=== PATIENT | female | born 1965 | race Caucasian/White ===

== ENCOUNTER 2017-03-27 07:25 | Emergency (ER) | payer BC ==
[2017-03-27 07:42] VITALS: BP 115/77
[2017-03-27] MEDS ORDERED: Albuterol/Ipratropium NEB.SOL* Albuterol 2.5 MG/Ipratropium 0.5 MG 3 ML INH ONE (08:11)
--- NOTE | 2017-03-27 08:11 | UC ---
Throat Pain/Nasal Jf HPI - HPI Summary HPI Summary: complaint of nasal congestion and cough and sore throat that started 4 daysa go has had some fever and chills feels fatigued cough has become productive coughing fits at night using albuterol approx 3-4x day for the last 3 days hears wheezing in her chest sometimes especially at night taking ibuprofen, mucinex, and her 's prednisone yesterday without relief - History of Current Complaint Chief Complaint: UCRespiratory Stated Complaint: FEVER CHILLS CONGESTION Time Seen by Provider: 03/27/17 08:04 Hx Obtained From: Patient - Allergies/Home Medications Allergies/Adverse Reactions: Allergies Allergy/AdvReac Type Severity Reaction Status Date / Time No Known Allergies Allergy Verified 03/09/17 12:18 Home Medications: Home Medications Dextromethorphan-Guaifenesin [Mucinex Dm Maximum Streng 60-1200 mg] 1 tab PO TID PRN 03/27/17 [History Confirmed 03/27/17] predniSONE TAB* [Deltasone TAB*] 1 tbsp PO DAILY 03/27/17 [History Confirmed ] PMH/Surg Hx/FS Hx/Imm Hx Previously Healthy: Yes Endocrine History Of: Reports: Thyroid Disease - hypo Denies: Diabetes Cardiovascular History Of: Denies: Cardiac Disorders, Hypertension Respiratory History Of: Reports: Asthma, Bronchitis - HX OF Denies: COPD GI/ History Of: Denies: Ulcer Neurological History Of: Reports: Migraine - occasional - Surgical History Surgical History: Yes Surgery Procedure, Year, and Place: [address] [place] [facility] [place] [facility] [place] NOVASURE PROCEDURE, OFFICE - Family History Known Family History: Negative: Cardiac Disease, Hypertension - Social History Occupation: Employed Full-time Lives: With Family Alcohol Use: Rare Substance Use Type: None Smoking Status (MU): Never Smoked Tobacco Review of Systems Constitutional: Fever, Chills Skin: Negative Eyes: Negative ENT: Sore Throat, Nasal Discharge Respiratory: Cough Cardiovascular: Negative Gastrointestinal: Negative Genitourinary: Negative Motor: Negative Neurovascular: Negative Musculoskeletal: Negative Neurological: Negative Psychological: Negative All Other Systems Reviewed And Are Negative: Yes Physical Exam Triage Information Reviewed: Yes Appearance: No Pain Distress, Well-Nourished Vital Signs: Initial Vital Signs Temp 97.1 F 03/27/17 07:35 Pulse 73 03/27/17 07:35 Resp 16 03/27/17 07:35 BP 115/77 03/27/17 07:35 Pulse Ox 97 03/27/17 07:35 Vital Signs Reviewed: Yes Eyes: Positive: Conjunctiva Clear ENT: Positive: Pharyngeal erythema, Nasal congestion, Nasal drainage, TMs normal Neck: Positive: No Lymphadenopathy Respiratory: Positive: Rhonchi - RUL, Wheezing - throughout Cardiovascular: Positive: RRR, No Murmur, Pulses Normal Abdomen Description: Positive: Nontender, Soft Bowel Sounds: Positive: Present Musculoskeletal: Positive: No Edema Neurological: Positive: Alert Psychological Exam: Normal Skin Exam: Normal Throat Pain/Nasal Course/Dx - Differential Dx/Diagnosis Differential Diagnosis/HQI/PQRI: Pharyngitis, Sinusitis, Tonsillitis, URI, Other - bronchitis, pneumonia, asthma exacerbation Provider Diagnoses: asthma exacerbation Discharge - Discharge Plan Condition: Stable Disposition: HOME Prescriptions: Azithromycin TAB* [Zithromax TAB (Z-ALAN) 250 mg #6 tabs] 2 tab PO .TODAY, THEN 1 DAILY #1 alan Benzonatate CAP* [Tessalon 100 MG CAP*] 100 mg PO TID #30 cap predniSONE TAB* [Deltasone TAB*] 50 mg PO DAILY #5 tab Patient Education Materials: Asthma (ED) Referrals: Glynn Dinh MD [Primary Care Provider] - Additional Instructions: Please take antibiotic as directed Use your albuterol inhaler every 4-6 hours when needed for wheezing, shortness of breath or uncontrolled coughing. Increase fluids and rest Take acetaminophen or ibuprofen for fever or pain Please review your discharge instructions. If your symptoms do not improve please call your primary care provider or return to urgent care.
== END 2017-03-27 08:32 | disposition home or self-care (01) ==
LOC: UCEAST 07:25
DX: J45.901 Unspecified asthma with (acute) exacerbation (principal); E03.9 Hypothyroidism, unspecified; G43.909 Migraine, unspecified, not intractable, without status migrainosus
CPT/HCPCS: 99212; A9270-GY; G0463

== ENCOUNTER 2017-10-29 11:36 | Emergency (ER) | payer BC, OTHER ==
[2017-10-29 12:12] VITALS: BP 123/80
--- NOTE | 2017-10-29 13:14 | UC ---
Respiratory Complaint HPI - HPI Summary HPI Summary: Patient presents to the with CC of fatigue, cough, congestion and chest discomfort with cough x 4 days. She denies smoking history. Denies body aches. Notes to 1 day of fevers, sweats and chills. She has been otherwise healthy, takes no medications and has no history of high blood pressure. She is an asthmatic and has been using her inhalers more frequently. Sputum is without color. Cough is worse at night. OTC medications without improvement. - History of Current Complaint Chief Complaint: UCGeneralIllness Stated Complaint: COUGH Time Seen by Provider: 10/29/17 12:20 Hx Obtained From: Patient Hx Last Menstrual Period: Endometrial ablasion- 2007 ?: No Onset/Duration: Sudden Onset Timing: Constant Severity Initially: Moderate Severity Currently: Moderate Pain Intensity: 4 Pain Scale Used: 0-10 Numeric Character: Cough: Nonproductive Associated Signs And Symptoms: Positive: Dyspnea - Risk Factors Pulmonary Embolism Risk Factors: Negative Cardiac Risk Factors: Negative Pseudomonas Risk Factors: Chronic Lung Disease Tuberculosis Risk Factors: Negative - Allergies/Home Medications Allergies/Adverse Reactions: Allergies Allergy/AdvReac Type Severity Reaction Status Date / Time No Known Allergies Allergy Verified 10/29/17 12:12 PMH/Surg Hx/FS Hx/Imm Hx Previously Healthy: Yes Respiratory History: Asthma - Surgical History Surgical History: Yes Surgery Procedure, Year, and Place: 1991 RIGHT OOPHORECTOMY, [facility] [place]. RIGHT OVARY CYSTECTOMY, [facility] [place]. 2007 NOVASURE PROCEDURE, OFFICE - Family History Known Family History: Negative: Cardiac Disease, Hypertension - Social History Occupation: Employed Full-time Lives: With Family Alcohol Use: None Substance Use Type: None Smoking Status (MU): Never Smoked Tobacco Have You Smoked in the Last Year: No - Immunization History Most Recent Influenza Vaccination: NOT UTD Review of Systems Constitutional: Negative Skin: Negative ENT: Nasal Discharge, Sinus Congestion, Sinus Pain/Tenderness Respiratory: Negative Cardiovascular: Negative Motor: Negative Neurovascular: Negative Musculoskeletal: Negative Neurological: Negative Is Patient Immunocompromised?: No All Other Systems Reviewed And Are Negative: Yes Physical Exam Triage Information Reviewed: Yes Appearance: Well-Appearing, Well-Nourished Vital Signs: Initial Vital Signs Temp 97.3 F 10/29/17 12:07 Pulse 72 10/29/17 12:07 Resp 20 10/29/17 12:07 BP 123/80 10/29/17 12:07 Pulse Ox 98 10/29/17 12:07 Vital Signs Reviewed: Yes Eye Exam: Normal Eyes: Positive: Conjunctiva Clear ENT: Positive: Pharynx normal, TMs normal, Uvula midline. Negative: Nasal congestion, Nasal drainage, TM bulging, TM dull, TM red, Tonsillar swelling, Tonsillar exudate, Muffled voice, Hoarse voice, Dental tenderness, Sinus tenderness Neck exam: Normal Neck: Positive: Supple, No Lymphadenopathy Respiratory Exam: Normal Respiratory: Positive: Chest non-tender, Lungs clear Cardiovascular Exam: Normal Cardiovascular: Positive: RRR Neurological Exam: Normal Psychological Exam: Normal Psychological: Positive: Normal Response To Family Skin Exam: Normal UC Diagnostic Evaluation - Laboratory O2 Sat by Pulse Oximetry: 98 Respiratory Course/Dx - Course Course Of Treatment: Patient presents to the ED with CC of fatigue. Lungs CTA. Chest xray with negative findings. Flu negative. She is encouraged mucinex and given a prescription for chest congestion. Tessalon for cough. Patient will follow up with her PCP or return for any worsening or changing symptoms. - Differential Dx/Diagnosis Provider Diagnoses: URI Discharge - Discharge Plan Condition: Stable Disposition: HOME Prescriptions: Benzonatate CAP* [Tessalon CAP*] 100 mg PO TID #21 cap guaiFENesin ER TAB [Mucinex*] 1,200 mg PO DAILY #10 tab.er Patient Education Materials: Upper Respiratory Infection (ED) Referrals: Glynn Dinh MD [Primary Care Provider] - Additional Instructions: Humidifier Rest Fluids Medications as prescribed
--- NOTE | 2017-10-29 13:32 | RAD ---
INDICATION: Cough and fever COMPARISON: Chest x-ray September 29, 2003 TECHNIQUE: PA and lateral views of the chest were obtained. FINDINGS: The heart and mediastinum are normal in size and contour. The lungs are grossly clear. There is no evidence of large pleural effusion. Visualized bones are normal for the patient's age. There is no radiographic evidence of free air beneath the diaphragm IMPRESSION: No radiographic evidence of acute cardiopulmonary disease.
== END 2017-10-29 13:46 | disposition home or self-care (01) ==
LOC: UCEAST 11:36
DX: J06.9 Acute upper respiratory infection, unspecified (principal); J45.909 Unspecified asthma, uncomplicated
CPT/HCPCS: 71020; 87502; 99212; G0463

== ENCOUNTER 2017-12-21 07:20 | Emergency (ER) | payer BC ==
--- OUTSIDE RECORDS SUMMARY | 2017-12-21 07:28 | XMS REPORT ---
:1965 Author Organization [facility] Address [address] [place] [address] Care Team Providers Name Role Phone Aileen Gutiérrez Unavailable Unavailable PROBLEMS ALLERGIES No Information ENCOUNTERS IMMUNIZATIONS No Known Immunizations SOCIAL HISTORY No smoking Hx information available REASON FOR REFERRAL FUNCTIONAL STATUS PLAN OF CARE VITAL SIGNS MEDICATIONS Unknown Medications PROCEDURES No Known procedures RESULTS No Results REASON FOR VISIT MEDICAL (GENERAL) HISTORY
--- OUTSIDE RECORDS SUMMARY | 2017-12-21 07:29 | XMS REPORT ---
:[address] [facility] Address [address] [place] [address] Care Team Providers Name Role Phone Ayaka Murcia Unavailable Unavailable PROBLEMS Type Condition ICD9-CM Code TEL16-BG Code Onset Condition SNOMED Code Dates Status Problem Other abnormal R92.8 Active 602376076 and inconclusive findings on diagnostic imaging of breast Problem Hypothyroidism, E03.9 Active 95998713 unspecified Problem Family history of Z80.0 Active 113377909 malignant neoplasm of digestive organs Problem Mastodynia N64.4 Active [id number] ALLERGIES No Known Allergies ENCOUNTERS Encounter Location Date Diagnosis [facility] [address] Dec, OBGYN [place] [id number] [facility] 103 Dec, Mastodynia N64.4 and Other OBGYN [facility] abnormal and inconclusive [place], [place] [id number] findings on diagnostic imaging of breast R92.8 [facility] 103 Oct, OBGYN [place] [id number] [facility] 103 Sep, [place]BG[place] [id number] [facility] 103 Sep, Hypertrophy of uterus N85.[address] [facility] and Diffuse cystic [place], [place] [id number] mastopathy of unspecified breast N60.19 [facility] 103 Sep, Hypertrophy of uterus N85.2 OBN [place] [id number] [facility] 103 Aug, Encounter for gynecological OBGYN [facility] examination (general) [place], [place] [id number] (routine) without abnormal findings Z01.419 ; Encounter for screening for malignant neoplasm of cervix Z12.4 ; Encounter for screening mammogram for malignant neoplasm of breast Z12.31 ; Encounter for screening for malignant neoplasm of colon Z12.11 ; Diffuse cystic mastopathy of unspecified breast N60.19 and Hypertrophy of uterus N85.2 [facility] 103 Jul, OBGYN [place] [id number] [facility] 103 Jul, Mastodynia N64.[address] [facility] Diffuse cystic mastopathy [place], [place] [id number] of right breast N60.11 [facility] 103 Jul, OBGYN [place] [id number] [facility] 103 Jul, [place] [id number] [facility] 103 Jul, [facility] R[facility].0 [place] [id number] [facility] 103 Mar, Unspecified lump in breast OBGYN [facility] N63 [place] [id number] [facility] 103 Mar, [place] [id number] [facility] 103 Mar, OBGYN [place] [id number] [facility] 103 February, [facility] [place], [place] [id number] (routine) with abnormal findings Z01.411 ; Encounter for screening for malignant neoplasm of cervix Z12.4 ; Encounter for screening mammogram for malignant neoplasm of breast Z12.31 ; Frequency of micturition R35.0 ; Unspecified lump in breast N63 and Family history of malignant neoplasm of digestive organs Z80.0 [facility] 103 February, [place]BG[place] [id number] [facility] 103 February, ROUTINE FIRMWARE ENGINEER EXAMINATION OBGYN [facility] V72.31 ; PAP SMEAR W/O FIRMWARE ENGINEER [place], [place] [id number] EXAM V76.2 ; SCREEN MAMMOGRAM NEC V76.12 ; Acute vulvovaginitis 616.10 and Umbilical hernia NOS 553.1 [facility] 103 February, [place] [id number] [facility] 103 February, [place]BG[place] [id number] [facility] 103 Dec, [place]BG[place] [id number] [facility] 103 Dec, [place]BG[place] [id number] [facility] 103 Dec, Vaginitis 616.10 ; Dysuria OBGYN [facility] 788.1 and Urinary frequency [place], [place] [id number] 788.41 [facility] 103 Oct, Abnormal Breast Findings OBGYN [facility] 793.89 [place], [place] [id number] [facility] 103 Oct, [place] [id number] [facility] 103 Sep, [place] [id number] [facility] 103 Sep, [place]BG[place] [id number] [facility] 103 Sep, Abnormal Breast Findings OBGYN [facility] 793.89 [place] [id number] [facility] 103 Aug, Inconclusive mammogram OBGYN [facility] 793.82 [place] [id number] [facility] 103 Aug, [place] [id number] [facility] 103 Jul, Candidal vulvovaginitis OBGYN [facility] 112.1 [place] [id number] [facility] 103 Jul, [place]BG[place] [id number] [facility] 103 Jul, [place]BG[place] [id number] [facility] 103 Jul, Dysuria 788.1 and Mastalgia OBGYN [facility] 611.71 [place], [place] [id number] [facility] 103 February, [place]BG[place] [id number] [facility] 103 Jan, ROUTINE FIRMWARE ENGINEER EXAMINATION OBGYN [facility] V72.31 and SCREEN MAMMOGRAM [place], [place] [id number] NEC V76.12 [facility] 103 February, Vaginitis 616.[address] [facility] Dysuria 788.1 [place] [id number] [facility] 103 February, [place]BGYN [place] [id number] [facility] 103 Dec, [place]BG[place] [id number] [facility] 103 Dec, ROUTINE FIRMWARE ENGINEER EXAMINATION OBGYN [facility] V72.31 ; PAP SMEAR W/O FIRMWARE ENGINEER [place], [place] [id number] EXAM V76.2 and SCREEN MAMMOGRAM NEC V76.12 [facility] 103 11 Dec, 2012 OBGYN [place] [id number] [facility] 103 30 Dec, 2011 [place]BG[place] [id number] [facility] 103 Dec, [place]BG[place] [id number] [facility] 103 Dec, [place]BG[place] [id number] [facility] 103 Dec, ROUTINE FIRMWARE ENGINEER EXAMINATION OBGYN [facility] V72.31 ; PAP SMEAR W/O FIRMWARE ENGINEER [place], [place] [id number] EXAM V76.2 and Mastalgia 611.71 [facility] 103 May, [place]BGYN [place] [id number] [facility] 103 Sep, ROUTINE FIRMWARE ENGINEER EXAMINATION OBGYN [facility] V72.31 ; Mastalgia 611.71 ; [place], [place] [id number] leukorrhea 623.5 and Itch of skin NOS 698.9 [facility] 103 Sep, ROUTINE FIRMWARE ENGINEER EXAMINATION [facility] V72.31 [place] [id number] [facility] 103 Dec, PELVIC PAIN 625.9 ; OBGYN [facility] Postcoital bleeding 626.7 ; [place], [place] [id number] Dyspareunia 625.0 and Ovarian cyst NOS 620.2 [facility] 103 Dec, PELVIC PAIN 625.9 ; OBGYN [facility] Postcoital bleeding 626.7 [place] [id number] and Dyspareunia 625.0 [facility] 103 Dec, [place]BG[place] [id number] [facility] 103 Dec, PELVIC PAIN 625.9 ; OBGYN [facility] Leukorrhea, not specified [place], [place] [id number] as infective 623.5 ; Urinary frequency 788.41 and Postcoital bleeding 626.7 [facility] 103 Dec, ROUTINE FIRMWARE ENGINEER EXAMINATION [facility] V72.31 ; Urinary frequency [place], [place] [id number] 788.41 and Mastalgia 611.71 [facility] 103 Jul, Menorrhagia 626.[address] Endometrial polyp 621.0 [place], [place] [id number] [facility] 103 Apr, Menometrorrhagia 626.2 OBGYN [place] [id number] [facility] 103 Apr, Menorrhagia 626.2 [facility] Endometrial polyp 621.0 [place], [place] [id number] [facility] 103 Mar, [place] [id number] [facility] 103 Mar, Endometrial polyp 621.0 ; [facility] Menorrhagia 626.2 and [place], [place] [id number] Abnormal Breast Findings 793.89 [facility] 103 Jan, [place] [id number] [facility] 103 Jan, Menorrhagia 626.2 [facility] Endometrial polyp 621.0 [place], [place] [id number] [facility] 103 Dec, Endometrial polyp 621.0 [facility] Menorrhagia 626.2 [place] [id number] [facility] 103 Dec, [place] [id number] [facility] 103 Dec, Leukorrhea, not specified [facility] as infective 623.5 [place], [place] [id number] [facility] 103 Dec, [place]BG[place] [id number] [facility] 103 Dec, ABN FINDINGS- ORGANS OBGYN [facility] 793.5 ; Menorrhagia 626.2 [place], [place] [id number] and Urinary frequency 788.41 [facility] 103 Dec, Endometrial polyp 621.0 [place] [id number] [facility] 103 Dec, PELVIC PAIN 625.9 ; [facility] Enlarged uterus 621.2 and [place], [place] [id number] Endometrial polyp 621.0 [facility] 103 Dec, [place]BGYN [place] [id number] [facility] 103 Dec, PELVIC PAIN 625.9 ; [facility] Enlarged uterus 621.2 and [place], [place] [id number] Endometrial polyp 621.0 [facility] 103 Oct, Pruritus [facility] genital organs [facility] 698.1 ; PELVIC PAIN 625.9 ; [place], [place] [id number] Urinary frequency 788.41 and Enlarged uterus 621.2 [facility] 103 Jul, Candidal [facility]aginitis [facility] 112.1 and Urinary frequency [place], [place] [id number] 788.41 IMMUNIZATIONS No Known Immunizations SOCIAL HISTORY Never Assessed REASON FOR REFERRAL FUNCTIONAL STATUS PLAN OF CARE Activity Details Follow Up 6 mo cbe, dx mammo, bilateral breast US 11-18 Reason: Pending Test Ultrasound : Breast, right Pending Test Ultrasound : Breast, left Pending Test Mammogram, Diagnostic Bilateral VITAL SIGNS Height 62 in 2017-12-06 Weight 156 lbs 2017-12-06 BMI 28.53 kg/m2 2017-12-06 Blood pressure systolic 118 mm Hg 2017-12-06 Blood pressure diastolic 64 mm Hg 2017-12-06 MEDICATIONS Medication Instructions Dosage Frequency Start Date End Date Duration Status Benadryl 25 mg orally qpm prn 1 cap(s) Active Levothyroid 24h Active 125mcg PROCEDURES No Known procedures RESULTS No Results REASON FOR VISIT CBE , please put in order for mammo and breast US due 10/2018 - see Jaden 11/16/17 MEDICAL (GENERAL) HISTORY Type Description Date Medical History asthma Medical History thyroid disease Medical History venereal disease Medical History mitral valve prolapse Medical History L sided TIA (stroke) 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
[2017-12-21 07:34] VITALS: BP 128/93
--- NOTE | 2017-12-21 07:44 | UC ---
Vicente Moses Gabriel, scribed for Yana Carmichael MD on 12/21/17 at 0743 . Throat Pain/Nasal Jf HPI - HPI Summary HPI Summary: This patient is a 52 year old F presenting to [facility] [place] with a chief complaint of a cough, congestion since 12-15-17. The patient rates the pain 1/10 in severity. Patient reports chest congestion, tickling in her throat, nasal congestion, chills, sneezing, fever, whistling on breathing, sinus pressure, post nasal drip , and itching in her ears. Patient denies n/v/d. Pt has allergies and at first believed that they were acting up but it has progressively gotten worse. Pt has had positive exposure to sick persons at her place of work. She has been taking yani seltzer cold and mucinex with little relief. Pt with sinus pressure and discomfort. Improves with shower. Patients medication reviewed during this visit. - History of Current Complaint Chief Complaint: UCRespiratory Stated Complaint: COUGH CONGESTION Time Seen by Provider: 12/21/17 07:32 Hx Obtained From: Patient Hx Last Menstrual Period: Endometrial ablasion- 2007 Onset/Duration: Lasting Weeks, Still Present Severity: Mild Pain Intensity: 1 Pain Scale Used: 0-10 Numeric Associated Signs & Symptoms: Positive: Wheezing, Sinus Discomfort, Nasal Discharge, Fever, Other - chest congestion, tickling in her throat, nasal congestion, chills, sneezing, fever, whistling on breathing, sinus pressure, post nasal drip, and itching in her ears. - Allergies/Home Medications Allergies/Adverse Reactions: Allergies Allergy/AdvReac Type Severity Reaction Status Date / Time No Known Allergies Allergy Verified 10/29/17 12:12 PMH/Surg Hx/FS Hx/Imm Hx Endocrine History: Thyroid Disease - Surgical History Surgical History: Yes Surgery Procedure, Year, and Place: 1991 RIGHT OOPHORECTOMY, [facility] [place]. RIGHT OVARY CYSTECTOMY, [facility] [place]. 2007 NOVASURE PROCEDURE, OFFICE - Family History Known Family History: Positive: Cardiac Disease, Diabetes Negative: Hypertension, Renal Disease, Respiratory Disease, Seizure Disorder - Social History Occupation: Employed Full-time Lives: With Family Alcohol Use: None Substance Use Type: None Smoking Status (MU): Never Smoked Tobacco Have You Smoked in the Last Year: No - Immunization History Most Recent Influenza Vaccination: NOT UTD Review of Systems Constitutional: Fever, Chills ENT: Sore Throat, Ear Ache, Nasal Discharge, Sinus Congestion, Sinus Pain/ Tenderness, Other - post nasal drip Respiratory: Cough, Other - chest congestion, sneezing, whistling when breathing Gastrointestinal: Negative - NVD All Other Systems Reviewed And Are Negative: Yes Physical Exam Triage Information Reviewed: Yes Appearance: Well-Appearing, Well-Nourished, Other: - congested Vital Signs: Initial Vital Signs Temp 98.9 F 12/21/17 07:29 Pulse 77 12/21/17 07:29 Resp 18 12/21/17 07:29 BP 128/93 12/21/17 07:29 Pulse Ox 96 12/21/17 07:29 Vital Signs Reviewed: Yes Eye Exam: Normal Eyes: Positive: Conjunctiva Clear ENT: Positive: Other - mild fluid left ear turbinates inflammed and boggy + thick yellow PND mmoist uvula midline no exudate, no erythema Dental Exam: Normal Neck exam: Normal Neck: Positive: Supple, Nontender, No Lymphadenopathy Respiratory Exam: Normal Respiratory: Positive: Chest non-tender, Lungs clear, Normal breath sounds, No respiratory distress, No accessory muscle use Cardiovascular Exam: Normal Cardiovascular: Positive: RRR, No Murmur, Pulses Normal Abdominal Exam: Normal Abdomen Description: Positive: Nontender, No Organomegaly, Soft Bowel Sounds: Positive: Present Musculoskeletal Exam: Normal Musculoskeletal: Positive: Strength Intact Neurological Exam: Normal Neurological: Positive: Alert Psychological Exam: Normal Psychological: Positive: Normal Response To Family Skin Exam: Normal Throat Pain/Nasal Course/Dx - Course Course Of Treatment: Pt with 6 days progressive congestion, cough, pnd and sinus pain. pt with tactile temp. lungs clear. exam c/w sinusitis. will Rx abx, flonase. humidify air. secretion precaution. decongestant. diflucan as pt gets yeast infection. work note. pt comfortable and in agreement with plan - Differential Dx/Diagnosis Provider Diagnoses: sinusitis Discharge - Discharge Plan Condition: Stable Disposition: HOME Prescriptions: Amoxicillin PO (*) [Amoxicillin 875 MG (*)] 875 mg PO BID #20 tab Fluconazole [Diflucan 150 MG (NF)] 150 mg PO ONCE PRN #1 tab PRN Reason: yeast infection Fluticasone NASAL SPRAY 50MCG* [Flonase NASAL SPRAY 50MCG*] 2 spray BOTH NARES DAILY #1 btl Patient Education Materials: Rhinosinusitis (ED) Forms: *Work Release Referrals: Glynn Dinh MD [Primary Care Provider] - Additional Instructions: Stay well hydrated. Drink plenty of non-alcoholic, non-caffinated beverages. - Alternate ibuprofen (Advil, Motrin) 600mg and Tylenol every 3 hours for pain or fever. Take with food. Do NOT take for more than 4-5 days. - take antibiotics as prescribed until gone - use nasal spray as prescribed - These infections are spread by secretions - do NOT share eating or drinking utensils - clean items you share with other people such as cell phones, computer mouse, TV remote, computer tablets, etc. After you have taken antibiotics for 3 days, change your toothbrush and your pillowcase. - get plenty of restful sleep - humidify the air in the room where you sleep - boil water, run a hot steam shower, vaporizer, cups of water by heat register - okay to take over the counter decongestant and cough medication - you have been given a prescription for diflucan - okay to take as needed for a yeast infection caused by antibiotics - contact your doctor, return here, or go to the emergency department with questions or concerns The documentation as recorded by the Vicente lisa Gabriel accurately reflects the service I personally performed and the decisions made by me, Yana Carmichael MD.
== END 2017-12-21 07:59 | disposition home or self-care (01) ==
LOC: UCEAST 07:20
DX: J32.9 Chronic sinusitis, unspecified (principal); E07.9 Disorder of thyroid, unspecified
CPT/HCPCS: 99212; G0463